=== PATIENT | female | born 1990 | race Caucasian/White ===

== ENCOUNTER 2019-12-07 09:29 | Emergency (ER) | payer OTHER ==
--- NOTE | 2019-12-07 09:49 | Emergency Department Record ---
History of Present Illness - General Chief Complaint: Dizziness Stated Complaint: FELL/LIGHTHEADED Time Seen by Provider: 12/07/19 09:32 Source: Patient, RN notes reviewed Mode of Arrival: Ambulatory - History of Present Illness Initial Comments: Patient became lightheaded taking a shower and fell and hit her head and this happened at 8 am today and No vomiting and complaining of headache frontal area and she feels alump in that area. She states when she wake up this am she had a headache and took ibuprofin 800mg at 7 am. Patient denies periods because of PCOD and her last period in jul and she had warning symptoms she was going to pass out in the shouwer kind of graying down and she got out of the shower and hit her head on the toilet with LOC. She states she has three headaches per week and this mornings headache felt like her typical headache and she usually used i buprofin for them.Neck is cleared by nexus criteria. Patient admits to using marijuana two bowls a day. Onset/Timin -: Minutes(s) Timing: Sudden onset Description: Lightheadedness, Near-syncope History of Same: No History of Trauma: No Severity: Moderate Improves With: Nothing - [place] Coma Scale Eye Response: (4) Open spontaneously Motor Response: (6) Obeys commands Verbal Response: (5) Oriented [place] Total: 15 - Related Data Home Medications Medication Instructions Recorded Confirmed Last Taken Ibuprofen [Motrin] 800 mg PO Q8H PRN 12/07/19 12/07/19 12/07/19 07:41 Allergies Allergy/AdvReac Type Severity Reaction Status Date / Time No Known Drug Allergies Allergy Verified 12/07/19 09:40 Travel/Exposure Screening - Travel/Exposure Within Last 30 Days Have you traveled within the last 30 days?: No - Travel/Exposure Within Last Year Have you traveled outside the [place] in the last year?: No - Additonal Travel/Exposure Details Have you been exposed to anyone with a communicable illness?: No - Travel Symptoms Symptom Screening: None Review of Systems Reviewed: No additional complaints except as noted below Constitutional: Reports: As per HPI. Denies: Chills, Fever, Malaise, Night sweats, Weakness, Weight change Eyes: Reports: As per HPI. Denies: Eye discharge, Eye pain, Photophobia, Vision change ENT: Reports: As per HPI. Denies: Congestion, Dental pain, Ear pain, Epistaxis, Hearing loss, Throat pain Respiratory: Reports: As per HPI. Denies: Cough, Dyspnea, Hemoptysis, Stridor, Wheezes Cardiovascular: Reports: As per HPI. Denies: Arrhythmia, Chest pain, Dyspnea on exertion, Edema, Murmurs, Orthopnea, Palpitations, Paroxysmal nocturnal dyspnea, Rheumatic Fever, Syncope Endocrine: Reports: As per HPI. Denies: Fatigue, Heat or cold intolerance, Polydipsia, Polyuria Gastrointestinal: Reports: As per HPI, Nausea. Denies: Abdominal pain, Constipation, Diarrhea, Hematemesis, Hematochezia, Melena, Vomiting Genitourinary: Reports: As per HPI. Denies: Abnormal menses, Discharge, Dyspareunia, Dysuria, Frequency, Hematuria, Incontinence, Retention, Urgency Musculoskeletal: Reports: As per HPI. Denies: Arthralgia, Back pain, Gout, Joint swelling, Myalgia, Neck pain Skin: Reports: As per HPI. Denies: Bruising, Change in color, Change in hair/nails, Lesions, Pruritus, Rash Neurological: Reports: As per HPI, Headache. Denies: Abnormal gait, Confusion, Numbness, Paresthesias, Seizure, Tingling, Tremors, Vertigo, Weakness Psychiatric: Reports: As per HPI. Denies: Anxiety, Auditory hallucinations, Depression, Homicidal thoughts, Suicidal thoughts, Visual hallucinations Hematological/Lymphatic: Reports: As per HPI. Denies: Anemia, Blood Clots, Easy bleeding, Easy bruising, Swollen glands Past Medical History - SOCIAL HISTORY Smoking Status: Light tobacco smoker (<10/day) Alcohol Use: Occasional Drug Use: Occasional Drug Use Detail:: Marijuana - RESPIRATORY Hx Respiratory Disorders: No - CARDIOVASCULAR Hx Cardio Disorders: No - NEURO Hx Neuro Disorders: No - GI Hx GI Disorders: No - Hx Genitourinary Disorders: No - ENDOCRINE Hx Endocrine Disorders: No Comment:: auto immume HSS - MUSCULOSKELETAL Hx Musculoskeletal Disorders: No - PSYCH Hx Psych Problems: Yes Hx Depression: Yes - HEMATOLOGY/ONCOLOGY Hx Hematology/Oncology Disorders: Yes Comment:: hidradenitis suppurativa Family Medical History Any Significant Family History?: Yes Hx Cancer: Grandparents Hx Diabetes: Mother, Grandparents Hx HTN: Father Physical Exam - General General Appearance: Alert, Oriented x3, Cooperative, Mild distress (lump on forehead) - Head Head exam: Normal inspection - Eye Eye exam: Normal appearance, PERRL, Other (fundiscopic exam disk margins are blurred, she also is photophobic) Pupils: Normal accommodation - ENT ENT exam: Normal exam, Mucous membranes moist, Normal external ear exam, Normal orophraynx, TM's normal bilaterally Ear exam: Normal external inspection. negative: External canal tenderness Nasal Exam: Normal inspection. negative: Discharge, Sinus tenderness Mouth exam: Normal external inspection, Tongue normal Teeth exam: Normal inspection. negative: Dental caries Throat exam: Normal inspection. negative: Tonsillar erythema, Tonsillar exudate - Neck Neck exam: Normal inspection, Full ROM. negative: Tenderness - Respiratory Respiratory exam: Normal lung sounds bilaterally. negative: Respiratory distress - Cardiovascular Cardiovascular Exam: Regular rate, Normal rhythm, Normal heart sounds - GI/Abdominal GI/Abdominal exam: Soft, Normal bowel sounds. negative: Tenderness - Rectal Rectal exam: Deferred - exam: Deferred - Extremities Extremities exam: Normal inspection, Full ROM, Normal capillary refill. negative: Tenderness - Back Back exam: Reports: Normal inspection, Full ROM. Denies: Muscle spasm, Rash noted, Tenderness - Neurological Neurological exam: Alert, Normal gait, Oriented X3, Reflexes normal - Psychiatric Psychiatric exam: Normal affect, Normal mood - Skin Skin exam: Dry, Intact, Normal color, Warm Course Vital Signs 12/07/19 09:33 Temperature 97.8 F Pulse Rate 104 H Respiratory 20 Rate Blood Pressure 108/78 Pulse Ox 98 - Reevaluation(s) Reevaluation #1: neuro recheck negative Patient is feeling better 12/07/19 11:42 Medical Decision Making - Data Complexity MDM Data: Labs Ordered and/or Reviewed (urine preg negative, WBC 10,500), X-Ray Ordered and/or Reviewed ( negative, CT head negative chest negative), EKG Ordered and/or Reviewed (ekg nsr no acute changes) - Lab Data Result diagrams: 12/07/19 10:20 12/07/19 10:20 Disposition Clinical Impression: Headache Qualifiers: Headache type: unspecified Headache chronicity pattern: acute headache Intrac tability: not intractable Qualified Code(s): R51 - Headache Contusion of head Qualifiers: Encounter type: initial encounter Contusion of head detail: other part of head Qualified Code(s): S00.83XA - Contusion of other part of head, initial encounter Disposition: Home, Self-Care Condition: (1) Good Instructions: Concussion (ED) Additional Instructions: follow up with family Dr in 2 days return to Emergency department if worse tylenol or ibuprofin for pain Forms: Patient Portal Access Time of Disposition: 11:42 Quality - Quality Measures Quality Measures: Blunt Head Trauma (>2yr) - Barber Coma Scale [place] Coma Scale: [place] Coma Scale Eye Response: (4) Open spontaneously Motor Response: (6) Obeys commands Verbal Response: (5) Oriented [place] Total: 15 - Blunt Head Trauma - Adult Quality Measure: Measure #415: Utilization of CT for Minor Blunt Head Trauma Was CT ordered: Yes Does Patient Have Any of the Following: No Exclusions Patient Presented Within 24 Hours of Injury: Yes Barber Score: [address] for Minor Blunt Head Trauma: < CT Done, Appropriate Indication > [G9529] Additional Inclusion Criteria: Within 24hrs (AND) GCS of 15 (AND) CT ordered. [G9530] Indications For CT: Severe Headache, Focal Neurological Deficit (blurred disk margins on fundiscopic examination), Drug/Alcohol Intoxication w/Loss of Consciousness - Blood Pressure Screening Does Patient Have Any of the Following: No Blood Pressure Classification: Normal BP Reading Systolic Measurement: 108 Diastolic Measurement: 78 Screening for High Blood Pressure: < Normal BP, F/U Not Required > [G8783]
[2019-12-07 10:02] LABS: URINE APPEARANCE CLEAR; URINE BILIRUBIN NEGATIVE (NEGATIVE); URINE BLOOD NEGATIVE (NEGATIVE); URINE COLOR YELLOW; URINE GLUCOSE (UA) NEGATIVE (NEGATIVE); URINE KETONE NEGATIVE (NEGATIVE); URINE LEUKOCYTE ESTERASE SMALL (NEGATIVE); URINE NITRITE NEGATIVE (NEGATIVE); URINE PROTEIN NEGATIVE (NEGATIVE); URINE UROBILINOGEN 0.2 E.U./dL (0.20 - 1.00)
[2019-12-07 10:11] LABS: URINE BACTERIA NONE SEEN; URINE RBC NONE SEEN (NONE SEEN)
[2019-12-07 10:16] LABS: HCG,QUALITATIVE URINE NEGATIVE (NEGATIVE)
[2019-12-07] MEDS ORDERED: ACETAMINOPHEN 1,000 MG/100 ML BTL IVPB ONE (10:18)
[2019-12-07 10:27] LABS: ABSOLUTE NEUTROPHIL COUNT 6.47; BASO % 0.3 % (0-6); EOS % 2.9 % (0-6); GRAN % 61.5 % (47-80); HEMATOCRIT 42.8 % (35.0-47.0); HEMOGLOBIN 13.9 gm/dl (11.6-16.0); LYMPH % 26.5 % (16-45); MEAN CELL VOLUME 92.4 fl (81-97); MEAN CORPUSCULAR HGB CONC 32.5 g/dl (32-36); MEAN PLATELET VOLUME 9.3 fl (7.4-10.4); MONO % 8.8 % (0-9); PLATELET COUNT 453 K/uL (130-400); RED BLOOD COUNT 4.63 M/uL (3.80-5.40); RED CELL DISTRIBUTION WIDTH 13.1 % (11.5-14.5); WHITE BLOOD COUNT W/O DIFF 10.5 K/uL (4.2-12.2)
[2019-12-07 10:36] LABS: BLOOD UREA NITROGEN 9 mg/dL (6-20); CREATININE 0.6 mg/dL (0.5-0.9); EST GLOMERULAR FILTRATION RATE > 60 mL/min
[2019-12-07 10:38] LABS: GLUCOSE,RANDOM 100 mg/dL (74-109)
[2019-12-07 11:16] LABS: AMPHETAMINE SCREEN URINE NOT DETECTED; BARBITURATE SCREEN URINE NOT DETECTED; BENZODIAZEPINE SCREEN URINE NOT DETECTED; COCAINE SCREEN URINE NOT DETECTED; METHADONE SCREEN URINE NOT DETECTED; METHAMPHETAMINE SCREEN NOT DETECTED; OPIATE SCREEN URINE NOT DETECTED; OXYCODONE SCREEN URINE NOT DETECTED; PHENCYCLIDINE SCREEN URINE NOT DETECTED; PROPOXYPHENE SCREEN URINE NOT DETECTED; THC SCREEN URINE DETECTED; TRICYCLIC ANTIDEPRESSANT SCRN NOT DETECTED
--- NOTE | 2019-12-07 11:34 | CT SCAN REPORT ---
EXAMINATION: CT Head without IV Contrast EXAM DATE: 12/07/2019 11:19 AM TECHNIQUE: Standard protocol CT images of the head were obtained without intravenous contrast. Escoto l and sagittal reconstructed images were created. INDICATION: head trauma and headache syncope. The technologist elicited the history: Syncope, fall t holly hitting the left side of the head, left parietal region on the toilet. Headache. Incidental Schm orl knee. COMPARISON: None HAND DOMINANCE: Right. ENCOUNTER: Not applicable FINDINGS: 1. There is no intracranial mass, midline shift, extraaxial fluid collection or hemorrhage. 2. The ventricles, sulci and cisterns are normal. 3. There are no suspicious area of altered attenuation. 4. There is no fracture. 5. Small bilateral maxillary sinus retention cysts or polyps are noted, more numerous on the right s makenna. The visualized aspects of the orbits, remaining paranasal sinuses, and mastoid air cells are nor mal. IMPRESSION: No acute CT intracranial abnormalities currently identified. Bilateral maxillary sinus retention cysts or polyps. Dictated by: Emily Marroquin MD on 12/07/2019 11:29 AM. .
--- NOTE | 2019-12-07 11:37 | RADIOLOGY REPORT ---
EXAMINATION: Two View Chest Radiographs EXAM DATE: 12/07/2019 11:27 AM TECHNIQUE: Frontal and lateral views INDICATION: head trauma and headache syncope. The technologist elicited the history: The patient fel l this morning hitting the left parietal head on the toilet. Headache. COMPARISON: None ENCOUNTER: Not applicable FINDINGS: The heart, mediastinum, and pulmonary vasculature are normal. No lung consolidation or pleural effu sions are present. IMPRESSION: No acute cardiopulmonary disease is present. Dictated by: Emily Marroquin MD on 12/07/2019 11:35 AM. .
[2019-12-07] MEDS ORDERED: 0.9 % SODIUM CHLORIDE 1,000 ML BAG IV ONE (11:54)
== END 2019-12-07 11:59 | disposition home or self-care (01) ==
LOC: ER 09:29
DX: S00.83XA Contusion of other part of head, initial encounter (principal); R51 Headache; R42 Dizziness and giddiness; W18.2XXA Fall in (into) shower or empty bathtub, initial encounter; Y93.E1 Activity, personal bathing and showering; F17.210 Nicotine dependence, cigarettes, uncomplicated
CPT/HCPCS: 70450; 71046; 80048; 80305; 81001; 81025; 84484; 85025; 85730; 93005; 93010; 96361; 96365; 99284; J7030